=== PATIENT | male | born 1970 | race Caucasian/White ===

== ENCOUNTER 2017-02-28 19:13 | Emergency (ER) | payer SELFPAY ==
[~2017-02-28] VITALS: Ht 185.4 cm; Wt 74.8 kg
[2017-02-28 19:25] VITALS: BP 122/86
== END 2017-03-01 01:16 | disposition left against medical advice (07) ==
LOC: ER 19:13
DX: R11.2 Nausea with vomiting, unspecified (principal); E86.0 Dehydration; M79.1 Myalgia; Z53.21 Procedure and treatment not carried out due to patient leaving prior to being seen by health care provider
CPT/HCPCS: 71045; 81001